=== PATIENT | male | born 1975 | race Caucasian/White ===

== ENCOUNTER 2016-07-12 07:46 | Emergency (ER) | payer BC ==
[2016-07-12 07:50] VITALS: PULSE 65; O2SAT 97
[2016-07-12] MEDS ORDERED: TORAdol 30 mg Injection IM ONE (08:19)
[2016-07-12] MEDS ORDERED: TORAdol 30 mg Injection ONE (08:23)
--- NOTE | 2016-07-12 08:24 | ERPHSYRPT ---
- History of Present Illness Time Seen by Provider: 07/12/16 07:48 Source: patient Patient Subjective Stated Complaint: chronic back pain Triage Nursing Assessment: pt states he has chronic back pain and this lower back pain started 2 weeks ago. no injury. c/o lower back pain radiating to lt leg down to knee. past hx of lumbar stenosis. no bruising or swelling. Physician History: CC: back pain Hx: 40 y/o patient of [facility] with hx of back pain, spinal stenosis. He has increased back pain. is supposed to be referred to a pain specialist-it is in the works. No fever, chills, abd pain, urinary complaints. No hx of CA. No new injury. Pain worse. He has DM. No hx of kidney disease. Drove self here. Back Pain Location: lumbar spine Allergies/Adverse Reactions: No Known Drug Allergies Allergy (Unverified 07/12/16 07:51) Home Medications: Metformin HCl 1000 mg [Glucophage 1000 MG] 1,000 mg PO BID 10/11/14 [History] Glipizide 5 mg [Glucotrol 5 MG] 5 mg PO BID 07/12/16 [History] Hx Tetanus, Diphtheria Vaccination/Date Given: Yes Hx Influenza Vaccination/Date Given: No Hx Pneumococcal Vaccination/Date Given: No Immunizations Up to Date: Yes - Review of Systems Constitutional: No Fever, No Chills Respiratory: No Cough, No Dyspnea Abdominal/Gastrointestinal: No Abdominal Pain Genitourinary Symptoms: No Dysuria, No Incontinence, No Flank Pain Musculoskeletal: Back Pain, No Fall, No Injury Neurological: No Focal Weakness, No Headache, No Parasthesia - Past Medical History Pertinent Past Medical History: Yes Neurological History: No Pertinent History ENT History: No Pertinent History Cardiac History: No Pertinent History Respiratory History: No Pertinent History Endocrine Medical History: Diabetes Type II Musculoskeletal History: No Pertinent History GI Medical History: No Pertinent History History: No Pertinent History Psycho-Social History: No Pertinent History Male Reproductive Disorders: No Pertinent History Other Medical History: chronic back pain - Past Surgical History Past Surgical History: Yes Neuro Surgical History: No Pertinent History Cardiac: No Pertinent History Respiratory: No Pertinent History Gastrointestinal: Cholecystectomy Genitourinary: No Pertinent History Musculoskeletal: No Pertinent History Male Surgical History: No Pertinent History Other Surgical History: tonsil. rt knee scope - Social History Smoking Status: Current every day smoker How long have you smoked: 20 Exposure to second hand smoke: Yes Drug Use: none Patient Lives Alone: No - Nursing Vital Signs Temperature: 97.8 F Temperature Source: Oral Pulse Rate: 65 Respiratory Rate: 18 Pain Intensity: 10 - Physical Exam General Appearance: alert, obese Eye Exam: PERRL/EOMI Ears, Nose, Throat Exam: moist mucous membranes Neck Exam: normal inspection, supple Respiratory Exam: normal breath sounds Cardiovascular Exam: regular rate/rhythm Gastrointestinal Exam: soft, No tenderness, No distention Back Exam: normal inspection, muscle spasm, point tenderness (all over back) Extremity Exam: normal inspection, normal range of motion Neurologic Exam: alert, oriented x 3, 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 Advised he pursue pain specialist as planned. He drove himself. Will try norflex at home. INSEPCT reviewed. He wants shot of toradol here- discussed risks of kidney injury with NSAIDS. Will Rx motrin and norflex. Counseled pt/family regarding: diagnosis, need for follow-up - Departure Time of Disposition: 08:23 Departure Disposition: Home Clinical Impression: Chronic low back pain Qualifiers: Back pain laterality: bilateral Sciatica presence: without sciatica Qualified Code(s): M54.5 - Low back pain; G89.29 - Other chronic pain Condition: Stable Critical Care Time: No Referrals: DOCTOR,NO FAMILY [Primary Care Provider] - Instructions: Low Back Pain Additional Instructions: BACK INJURY 1. May apply moist heat frequently for relief of pain. Take care not to burn the skin. Do not use heat for more than 30 minutes at a time. 2. Try to sleep on a firm bed, flat on your back. 3. If no improvement is noticed in 2-3 days, follow up with your family physician. 4. If you notice any numbness, tingling, weakness, or problems with your bowel or bladder, you should call your family physician or return to the emergency department. Rx motrin=ibuprofen. Rx norflex. Follow up at [facility] this week. No driving today or while taking norflex. Prescriptions: Ibuprofen 600 mg PO Q6H PRN PRN #15 tablet PRN Reason: Pain Orphenadrine Citrate 100 mg [Norflex 100 MG Tablet] 1 tab PO BID #10 tab
[2016-07-12 08:50] VITALS: BP 133/77
== END 2016-07-12 08:50 | disposition home or self-care (01) ==
LOC: ED 07:46
DX: M54.5 Low back pain (principal); G89.29 Other chronic pain
CPT/HCPCS: 96372; 99284; J1885

== ENCOUNTER 2018-12-04 18:27 | Emergency (ER) | payer BC ==
[2018-12-04] MEDS ORDERED: Hydromorphone 1 mg/ml Ampule IV ONE (19:42)
[2018-12-04] MEDS ORDERED: BENADRYL 50 MG/ML IV ONE (19:42)
[2018-12-04] MEDS ORDERED: Sodium Chloride 0.9% 1000 ML 1,000 ML IV STA (19:42)
--- NOTE | 2018-12-04 20:00 | ERPHSYRPT ---
- History of Present Illness Time Seen by Provider: 12/04/18 19:00 Source: patient Exam Limitations: no limitations Patient Subjective Stated Complaint: pt states that pain started a couple days ago, pt discribed pain as a addi horse and crushing to the top of the right foot Triage Nursing Assessment: pt ambulated into the er, pt had limp when ambulating , pt pedal pulses are possitive, no discoloration to the foot, no visible open areas, vitals wnl Physician History: Right foot pain on the dorsum and lateral aspect over the past two days as well as pain to the lateral ankle. No specific mechanism of injury he can recall. 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 Method of Injury: other (no mechanism of injury) Occurred: days ago (2) Quality: constant, cramping, throbbing Severity of Pain-Max: severe Severity of Pain-Current: severe Lower Extremities Pain: foot: right (dorsum and lateral side), ankle: right ( lateral) Modifying Factors: Improves With: nothing Associated Symptoms: No unable to bear weight, No dizzy, No fainted, No seizure , No snapping sensation, No popping sensation Allergies/Adverse Reactions: No Known Drug Allergies Allergy (Unverified 12/04/18 18:45) Home Medications: Metformin HCl 1000 mg [Glucophage 1000 MG] 1,000 mg PO BID 10/11/14 [History] Glipizide 5 mg [Glucotrol 5 MG] 5 mg PO BID 07/12/16 [History] Empagliflozin [Jardiance] 25 mg PO DAILY 12/04/18 [History] Hx Tetanus, Diphtheria Vaccination/Date Given: No Hx Influenza Vaccination/Date Given: No Hx Pneumococcal Vaccination/Date Given: No - Review of Systems Constitutional: No Fever, No Chills, No Fatigue, No Lethargy Eyes: No Eye Pain Ears, Nose, & Throat: No Mouth Pain, No Painful Swallowing Respiratory: No Cough, No Dyspnea Cardiac: No Chest Pain, No Edema, No Palpitations Abdominal/Gastrointestinal: No Abdominal Pain, No Nausea, No Vomiting Genitourinary Symptoms: No Hematuria, No Flank Pain Musculoskeletal: No Back Pain, No Neck Pain Skin: No Pruritis, No Rash Neurological: No Dizziness, No Focal Weakness, No Parasthesia, No Tics, No Tremors Psychological: No Anxiety Hematologic/Lymphatic: No Easy Bleeding, No Easy Bruising All Other Systems: Reviewed and Negative - Past Medical History Pertinent Past Medical History: Yes Neurological History: No Pertinent History ENT History: No Pertinent History Cardiac History: No Pertinent History Respiratory History: No Pertinent History Endocrine Medical History: Diabetes Type II Musculoskeletal History: No Pertinent History GI Medical History: No Pertinent History History: No Pertinent History Psycho-Social History: No Pertinent History Male Reproductive Disorders: No Pertinent History Other Medical History: chronic back pain - Past Surgical History Past Surgical History: Yes Neuro Surgical History: No Pertinent History Cardiac: No Pertinent History Respiratory: No Pertinent History Gastrointestinal: Cholecystectomy Genitourinary: No Pertinent History Musculoskeletal: No Pertinent History Male Surgical History: No Pertinent History Other Surgical History: tonsil. rt knee scope - Social History Smoking Status: Current every day smoker How long have you smoked: 20 Exposure to second hand smoke: Yes Drug Use: none Patient Lives Alone: No - Nursing Vital Signs Nursing Vital Signs: Initial Vital Signs Temperature 98.9 F 12/04/18 18:37 Pulse Rate 65 12/04/18 18:37 Blood Pressure 127/80 12/04/18 18:37 O2 Sat by Pulse Oximetry 94 L 12/04/18 18:37 Pain Scale Pain Intensity [Right Foot] 10 Pain Intensity 10 - Physical Exam General Appearance: no apparent distress Eyes, Ears, Nose, Throat Exam: moist mucous membranes Neck Exam: normal inspection, non-tender, supple, full range of motion Cardiovascular/Respiratory Exam: chest non-tender, normal breath sounds, regular rate/rhythm, heart sounds normal, no respiratory distress Back Exam: normal inspection, normal range of motion, No CVA tenderness, No vertebral tenderness Hips Exam: bilateral: non-tender, normal inspection, normal range of motion, no evidence of injury Legs Exam: bilateral leg: non-tender, normal inspection, normal range of motion , no evidence of injury Knees Exam: bilateral knee: non-tender, normal inspection, normal range of motion, no evidence of injury, bone tenderness Ankle Exam: right ankle: bone tenderness (lateral posterior malleolus), bilateral ankle: normal inspection, normal range of motion, no evidence of injury Foot Exam: right foot: bone tenderness, left foot: non-tender, normal inspection , normal range of motion, no evidence of injury DTR - Lower Extremities Exam: ankle (R): 2+, ankle (L): 2+ Neuro/Tendon Exam: normal sensation, normal motor functions, normal tendon functions, responds to pain, no evidence tendon injury Mental Status Exam: alert, oriented x 3, cooperative Skin Exam: normal color, warm, dry, No rash, No jaundice, No cyanosis SpO2 Interpretation: normal SpO2: 94 O2 Delivery: Room Air - Radiology Exams Right Ankle X-ray Interpretation: Interpreted by me, Reviewed by me, Negative, No Fracture, Nml Alignment, Nml Soft Tissues Foot X-ray Interpretation: Interpreted by me, Reviewed by me, Negative, No Fracture, Nml Alignment, Nml Soft Tissues Ordered Tests: Active Orders 24 hr Category Date Time Status IV Insertion STAT Care 12/04/18 19:42 Active ANKLE (3 VIEWS) Stat Exams 12/04/18 19:41 Taken FOOT (MINIMUM 3 VIEWS) Stat Exams 12/04/18 19:41 Taken CBC W DIFF Stat Lab 12/04/18 20:25 Completed CK-Creatinine Phosphokinase Stat Lab 12/04/18 20:25 Completed CMP Stat Lab 12/04/18 20:25 Completed Lactic Acid Stat Lab 12/04/18 20:25 Completed SED RATE [Erythrocyte Sedimentation Rate] Stat Lab 12/04/18 20:25 Completed Medication Summary Discontinued Medications Generic Name Dose Route Start Last Admin Trade Name Freq PRN Reason Stop Dose Admin Diphenhydramine HCl 25 mg 12/04/18 19:42 12/04/18 20:29 Benadryl 50 Mg/Ml IV 12/04/18 19:43 25 mg STAT ONE Administration Diphenhydramine HCl Confirm 12/04/18 20:27 Benadryl 50 Mg/Ml Administered 12/04/18 20:28 Dose 50 mg .ROUTE .STK-MED ONE Hydromorphone HCl 1 mg 12/04/18 19:42 12/04/18 20:30 Hydromorphone 1 Mg/Ml Ampule IV 12/04/18 19:43 1 mg STAT ONE Administration Hydromorphone HCl Confirm 12/04/18 20:27 Hydromorphone 1 Mg/Ml Ampule Administered 12/04/18 20:28 Dose 1 mg .ROUTE .STK-MED ONE Sodium Chloride 1,000 mls @ 999 mls/hr 12/04/18 19:42 12/04/18 20:30 Sodium Chloride 0.9% 1000 Ml IV 12/04/18 20:42 999 mls/hr .Q1H1M STA Administration Sodium Chloride Confirm 12/04/18 20:27 Sodium Chloride 0.9% 1000 Ml Administered 12/04/18 20:28 Dose 1,000 mls @ ud .ROUTE .STK-MED ONE Lab/Rad Data: Laboratory Result Diagrams 12/04/18 20:25 12/04/18 20:25 Laboratory Results 12/04/18 12/04/18 12/04/18 Range/Units 20:25 20:25 20:25 WBC 6.9 (4.0-10.5) K/mm3 RBC 5.11 (4.1-5.6) M/mm3 Hgb 15.8 (12.5-18.0) gm/dl Hct 47.3 (42-50) % MCV 92.6 (78-100) fl MCH 30.9 (26-32) pg MCHC 33.4 (32-36) g/dl RDW 14.3 H (11.5-14.0) % Plt Count 150 (150-450) K/mm3 MPV 9.8 H (6-9.5) fl Gran % 33.9 L (36.0-66.0) % Eos # (Auto) 0.35 (0-0.5) Absolute Lymphs (auto) 3.49 (1.0-4.6) Absolute Monos (auto) 0.67 (0.0-1.3) Lymphocytes % 50.9 H (24.0-44.0) % Monocytes % 9.8 (0.0-12.0) % Eosinophils % 5.1 H (0.00-5.0) % Basophils % 0.3 (0.0-0.4) % Absolute Granulocytes 2.33 (1.4-6.9) Basophils # 0.02 (0-0.4) ESR 6 (0-15) mm/hr Sodium 144 (137-145) mmol/L Potassium 4.1 (3.5-5.1) mmol/L Chloride 105 (98-107) mmol/L Carbon Dioxide 30 (22-30) mmol/L Anion Gap 13.6 (5-15) MEQ/L BUN 16 (9-20) mg/dL Creatinine 1.01 (0.66-1.25) mg/dL Estimated GFR > 60.0 ML/MIN Glucose 199 H (74-106) mg/dL Lactic Acid 1.2 (0.4-2.0) Calcium 9.1 (8.4-10.2) mg/dL Total Bilirubin 0.50 (0.2-1.3) mg/dL AST 44 (17-59) U/L ALT 40 (0-50) U/L Alkaline Phosphatase 62 (38-126) U/L Creatine Kinase 277 H (55-170) U/L Serum Total Protein 7.5 (6.3-8.2) g/dL Albumin 4.1 (3.5-5.0) g/dL - Progress Progress: improved Progress Note: 12/04/18 21:01 patient's pain has improved. No breakdown of the skin to either foot noted. Counseled pt/family regarding: lab results, diagnosis, need for follow-up, rad results - Departure Departure Disposition: Home Clinical Impression: Right foot pain, Pain in lateral portion of right ankle Condition: Good Critical Care Time: No Referrals: DOCTOR,NO FAMILY [Primary Care Provider] - JUSTIN SILVERMAN [PODIATRY STAFF] - 12/07/18 (Foot and Ankle specialist for your reference) Instructions: Diabetic Neuropathy (DC), Metatarsalgia (DC), Foot Sprain (DC) Additional Instructions: Return to the emergency department if you have change in skill color, texture, breakdown or worsening pain for immediate re-evaluation in the emergency department. Prescriptions: Etodolac 400 mg [Lodine 400 mg] 400 mg PO BID PRN PRN #20 tablet PRN Reason: Pain
[2018-12-04] MEDS ORDERED: Sodium Chloride 0.9% 1000 ML 1,000 ML ONE (20:27)
[2018-12-04] MEDS ORDERED: Hydromorphone 1 mg/ml Ampule ONE (20:27)
[2018-12-04] MEDS ORDERED: BENADRYL 50 MG/ML ONE (20:27)
[2018-12-04 20:30] LABS: Absolute Neutrophil Ct (ANC) 2.33 (1.4-6.9); BASOPHIL % 0.3 % (0.0-0.4); Basophil (Absolute #) 0.02 (0-0.4); Eosinophil % 5.1 % (0.00-5.0); Eosinophil (Absolute #) 0.35 (0-0.5); Hematocrit 47.3 % (42-50); Hemoglobin 15.8 gm/dl (12.5-18.0); Lymphocyte (Absolute #) 3.49 (1.0-4.6); Lymphocytes % 50.9 % (24.0-44.0); Mean Cell Volume 92.6 fl (78-100); Mean Corpuscular Hemoglobin 30.9 pg (26-32); Mean Corpuscular Hgb Concent. 33.4 g/dl (32-36); Mean Platelet Volume 9.8 fl (6-9.5); Monocyte (Absolute #) 0.67 (0.0-1.3); Monocytes % 9.8 % (0.0-12.0); Neutrophil % 33.9 % (36.0-66.0); Platelet Count 150 K/mm3 (150-450); Red Blood Count 5.11 M/mm3 (4.1-5.6); Red Cell Distribution Width 14.3 % (11.5-14.0); White Blood Count 6.9 K/mm3 (4.0-10.5)
[2018-12-04 20:41] LABS: ALBUMIN 4.1 g/dL (3.5-5.0); ALKALINE PHOSPHATASE 62 U/L (38-126); ANION GAP 13.6 MEQ/L (5-15); BLOOD UREA NITROGEN 16 mg/dL (9-20); CHLORIDE 105 mmol/L (98-107); CK-Creatinine Phosphokinase 277 U/L (55-170); Calcium 9.1 mg/dL (8.4-10.2); Carbon Dioxide 30 mmol/L (22-30); Creatinine 1 1.01 mg/dL (0.66-1.25); Glucose 199 mg/dL (74-106); Potassium 4.1 mmol/L (3.5-5.1); SGOT/AST 44 U/L (17-59); SGPT/ALT 40 U/L (0-50); SODIUM 144 mmol/L (137-145); Total Protein 7.5 g/dL (6.3-8.2)
[2018-12-04 20:49] LABS: Erythrocyte Sedimentation Rate 6 mm/hr (0-15)
[2018-12-04 21:36] VITALS: BP 119/70; PULSE 54; O2SAT 96
--- NOTE | 2018-12-04 23:56 | XRAY ---
Indication: Pain. No known injury. Comparison: None 3 views of the right ankle demonstrates mild soft tissue swelling. No other bony, articular, or soft tissue abnormalities.
--- NOTE | 2018-12-04 23:58 | XRAY ---
Indication: Pain. No known injury. Comparison: None 3 nonweightbearing views of the right foot demonstrates prominent navicular bone. No bony, articular, or soft tissue abnormalities.
== END 2018-12-04 21:42 | disposition home or self-care (01) ==
LOC: ED 18:27
DX: M79.671 Pain in right foot (principal); M25.571 Pain in right ankle and joints of right foot; Z79.899 Other long term (current) drug therapy; E11.9 Type 2 diabetes mellitus without complications
CPT/HCPCS: 36000; 36415; 73610; 73630; 80053; 82550; 83605; 85025; 85652; 96360; 96374; 96375; 99284; J1170; J1200

== ENCOUNTER 2020-08-14 03:14 | Emergency (ER) | payer BC ==
[2020-08-14] MEDS ORDERED: PROTONIX 40 MG IV IV ONE ×2 (03:36→03:48)
[2020-08-14] MEDS ORDERED: Sodium Chloride 0.9% 1000 ML 1,000 ML IV STA (03:36)
[2020-08-14] MEDS ORDERED: Zofran 4 MG/2 ML VIAL IV ONE (03:36)
[2020-08-14] MEDS ORDERED: Hydromorphone 1 mg/ml Injection IV ONE (03:36)
[2020-08-14] MEDS ORDERED: Hydromorphone 1 mg/ml Injection ONE (03:48)
[2020-08-14] MEDS ORDERED: Zofran 4 MG/2 ML VIAL ONE (03:48)
[2020-08-14] MEDS ORDERED: Sodium Chloride 0.9% 1000 ML 1,000 ML ONE (03:49)
[2020-08-14 04:08] LABS: Absolute Neutrophil Ct (ANC) 8.41 (1.4-6.9); BASOPHIL % 0.3 % (0.0-0.4); Basophil (Absolute #) 0.04 (0-0.4); Eosinophil % 1.9 % (0.00-5.0); Eosinophil (Absolute #) 0.25 (0-0.5); Hematocrit 57.3 % (42-50); Hemoglobin 19.1 gm/dl (12.5-18.0); Lymphocyte (Absolute #) 3.58 (1.0-4.6); Lymphocytes % 27.2 % (24.0-44.0); Mean Cell Volume 89.5 fl (78-100); Mean Corpuscular Hemoglobin 29.8 pg (26-32); Mean Corpuscular Hgb Concent. 33.3 g/dl (32-36); Monocytes % 6.8 % (0.0-12.0); Neutrophil % 63.8 % (36.0-66.0); Platelet Count 205 K/mm3 (150-450); Red Cell Distribution Width 14.9 % (11.5-14.0); White Blood Count 13.2 K/mm3 (4.0-10.5)
[2020-08-14 04:12] LABS: Appearance CLEAR (CLEAR); Bilirubin NEGATIVE (NEGATIVE); Blood NEGATIVE Ery/ul (0-5); Glucose >=500 mg/dL (NEGATIVE); Ketones NEGATIVE (NEGATIVE); Leukocyte Esterase NEGATIVE (NEGATIVE); Nitrite NEGATIVE (NEGATIVE); Protein,Urine Dip NEGATIVE (Negative); Specific Gravity 1.037 (1.005-1.025); Urobilinogen NEGATIVE mg/dL (0-1)
[2020-08-14 04:16] LABS: INR 1.05 (0.8-3.0); PROTIME 12.4 SECONDS (9.4-12.5)
[2020-08-14 04:17] LABS: ALBUMIN 4.6 g/dL (3.5-5.0); ALKALINE PHOSPHATASE 101 U/L (38-126); AMYLASE 66 U/L (30-110); ANION GAP 13.8 MEQ/L (5-15); BLOOD UREA NITROGEN 16 mg/dL (9-20); CHLORIDE 101 mmol/L (98-107); Calcium 9.7 mg/dL (8.4-10.2); Carbon Dioxide 28 mmol/L (22-30); Creatinine 1 0.96 mg/dL (0.66-1.25); EST GLOMERULAR FILTRATION RATE > 60.0 ML/MIN; Glucose 220 mg/dL (74-106); LIPASE 31 U/L (23-300); Potassium 4.4 mmol/L (3.5-5.1); SGOT/AST 30 U/L (17-59); SGPT/ALT 30 U/L (0-50); SODIUM 138 mmol/L (137-145)
--- NOTE | 2020-08-14 05:12 | ERPHSYRPT ---
- History of Present Illness Time Seen by Provider: 08/14/20 03:40 Historian: patient Exam Limitations: no limitations Patient Subjective Stated Complaint: Patient states " I started having really bad stomach cramping around 7 this evening." Triage Nursing Assessment: Patient arrived to ED and ambulated back without difficulty. Patient able to urinate and urine dark yellow in color with no odor yet appears concentrated. Lungs clear bilateral A/P throughout. Patient denies SOB or chest pain. Cap refill < 3 seconds. No S/S of respiratory distress noted. + BS times 4 quads. ABD soft, round, obese, and is tender upon p[alpitation of upper, lower and right side of ABD. Patient states he does have HX of kidney stones. Patient denies any pain or burning upon urination. No dependent edema noted. + Radial and pedal pulses noted bilateral. Patient states he has had N/V. Patient states he is puking undigested food/bile and has vomited at least 5-6 times since 0 yesterday. Patient denies loose stools. Patient states last BM was 08/13/20 and was WNL for him nothing out of ordinary. Patient denies any dizziness. Bilateral hand shaker flatwork strong and equal. Pupils brisk and equal. Patient denies radiating pain into back or flank. Physician History: Patient is a 45-year-old male who presents with epigastric pain which started at 7 PM yesterday evening. He has had nausea and vomiting 5-6 times no diarrhea his last bowel movement was yesterday no fever chills sweats no radiation. Timing/Duration: yesterday Activities at Onset: none Quality: burning, stabbing Abdominal Pain Onset Location: epigastric Pain Radiation: no radiation Severity of Pain-Max: severe Severity of Pain-Current: severe Modifying Factors: Improves With: nothing Associated Symptoms: nausea, vomiting Previous symptoms: no prior history Allergies/Adverse Reactions: No Known Drug Allergies Allergy (Unverified 08/14/20 03:40) Home Medications: Metformin HCl 1000 mg [Glucophage 1000 MG] 1,000 mg PO BID 10/11/14 [History] Glipizide 5 mg [Glucotrol 5 MG] 5 mg PO BID 07/12/16 [History] Empagliflozin [Jardiance] 25 mg PO DAILY 12/04/18 [History] Lisinopril 5 mg [Zestril 5 MG] 5 mg PO DAILY 02/04/20 [History] Semaglutide [Ozempic] 50 mg SQ WEEKLY 02/04/20 [History] Cholecalciferol (Vitamin D3) [Vitamin D] 5,000 units PO BID 08/14/20 [History] Hx Tetanus, Diphtheria Vaccination/Date Given: No Hx Influenza Vaccination/Date Given: Yes Hx Pneumococcal Vaccination/Date Given: No Immunizations Up to Date: Yes Travel Risk - International Travel Have you traveled outside of the country in past 3 weeks: No - Coronavirus Screening Are you exhibiting any of the following symptoms?: No Close contact with a COVID-19 positive Pt in past 14-21 Days: No - Vaccine Status Have you recieved a Covid-19 vaccination: No - Review of Systems Constitutional: No Fever, No Chills Eyes: No Symptoms Ears, Nose, & Throat: No Symptoms Respiratory: No Cough, No Dyspnea Cardiac: No Chest Pain, No Edema, No Syncope Abdominal/Gastrointestinal: Abdominal Pain, Nausea, Vomiting, No Diarrhea Genitourinary Symptoms: No Dysuria Musculoskeletal: No Back Pain, No Neck Pain Skin: No Rash Neurological: No Dizziness, No Focal Weakness, No Sensory Changes Psychological: No Symptoms Endocrine: No Symptoms All Other Systems: Reviewed and Negative - Past Medical History Pertinent Past Medical History: Yes Neurological History: No Pertinent History ENT History: No Pertinent History Cardiac History: No Pertinent History Respiratory History: No Pertinent History Endocrine Medical History: Diabetes Type II Musculoskeletal History: No Pertinent History GI Medical History: No Pertinent History History: No Pertinent History Psycho-Social History: No Pertinent History Male Reproductive Disorders: No Pertinent History Other Medical History: Chronic Back Pain - Past Surgical History Past Surgical History: Yes Neuro Surgical History: No Pertinent History Cardiac: No Pertinent History Respiratory: No Pertinent History Gastrointestinal: Cholecystectomy Genitourinary: No Pertinent History Musculoskeletal: No Pertinent History Male Surgical History: No Pertinent History Other Surgical History: HX RT Knee Scope - Social History Smoking Status: Current every day smoker How long have you smoked: 30 years Exposure to second hand smoke: Yes Drug Use: none Patient Lives Alone: No - Nursing Vital Signs Nursing Vital Signs: Initial Vital Signs Temperature 98.5 F 08/14/20 03:31 Pulse Rate 81 08/14/20 03:31 Respiratory Rate 22 08/14/20 03:31 Blood Pressure 129/77 08/14/20 03:31 O2 Sat by Pulse Oximetry 95 08/14/20 03:31 Pain Scale Pain Intensity 5 - Physical Exam General Appearance: no apparent distress, moderate distress, alert Eye Exam: PERRL/EOMI, eyes nml inspection Ears, Nose, Throat Exam: normal ENT inspection, pharynx normal, moist mucous membranes Neck Exam: normal inspection, non-tender, supple, full range of motion Respiratory Exam: normal breath sounds, lungs clear, No respiratory distress Cardiovascular Exam: regular rate/rhythm, normal heart sounds Gastrointestinal/Abdomen Exam: tenderness, guarding, No mass Back Exam: normal inspection, normal range of motion, No CVA tenderness, No vertebral tenderness Extremity Exam: normal inspection, normal range of motion, pelvis stable Neurologic Exam: alert, oriented x 3, cooperative, normal mood/affect, nml cerebellar function, sensation nml, No motor deficits Skin Exam: normal color, warm, dry SpO2: 97 - Course Nursing assessment & vital signs reviewed: Yes EKG Interpreted by Me: RATE (72), Sinus Rhythm, Left [place] Deviation, Non- specific ST Changes - CT Exams Abdomen/Pelvis CT Interpretation: Tele-radiologist Report Ordered Tests: Active Orders 24 hr Category Date Time Status EKG-ER Only STAT Care 08/14/20 03:36 Active IV Insertion STAT Care 08/14/20 03:36 Active ABDOMEN AND PELVIS W CONTRAST [CT] Stat Exams 08/14/20 03:36 Taken CHEST 1 VIEW (PORTABLE) Stat Exams 08/14/20 03:36 Taken AMYLASE Stat Lab 08/14/20 04:05 Completed CBC W DIFF Stat Lab 08/14/20 04:05 Completed CMP Stat Lab 08/14/20 04:05 Completed LIPASE Stat Lab 08/14/20 04:05 Completed Lactic Acid Stat Lab 08/14/20 03:36 Ordered PROTIME WITH INR Stat Lab 08/14/20 04:05 Completed TROPONIN Q3H Lab 08/14/20 04:05 Completed TROPONIN Q3H Lab 08/14/20 06:45 Ordered TROPONIN Q3H Lab 08/14/20 09:45 Ordered TROPONIN Q3H Lab 08/14/20 12:45 Ordered TROPONIN Q3H Lab 08/14/20 15:45 Ordered UA W/RFX UR CULTURE Stat Lab 08/14/20 04:05 Completed Medication Summary Generic Name Dose Route Start Last Admin Trade Name Manpreet PRN Reason Stop Dose Admin Metronidazole 500 mg in 100 mls @ 200 mls/hr 08/14/20 06:06 Flagyl 500 Mg Ivpb IV 08/14/20 06:35 STAT STA Ceftriaxone Sodium/Dextrose 1 g in 50 mls @ 100 mls/hr 08/14/20 06:07 Rocephin 1 Gm-D5w 50 Ml Bag IV 08/14/20 06:36 STAT STA Discontinued Medications Generic Name Dose Route Start Last Admin Trade Name Manpreet PRN Reason Stop Dose Admin Hydromorphone HCl 1 mg 08/14/20 03:36 08/14/20 03:57 Hydromorphone 1 Mg/Ml Injection IV 08/14/20 03:37 1 mg STAT ONE Administration Hydromorphone HCl Confirm 08/14/20 03:48 Hydromorphone 1 Mg/Ml Injection Administered 08/14/20 03:49 Dose 1 mg .ROUTE .STK-MED ONE Sodium Chloride 1,000 mls @ 999 mls/hr 08/14/20 03:36 08/14/20 03:54 Sodium Chloride 0.9% 1000 Ml IV 08/14/20 04:36 999 mls/hr .Q1H1M STA Administration Sodium Chloride Confirm 08/14/20 03:49 Sodium Chloride 0.9% 1000 Ml Administered 08/14/20 03:50 Dose 1,000 mls @ ud .ROUTE .STK-MED ONE Ondansetron HCl 4 mg 08/14/20 03:36 08/14/20 03:58 Zofran 4 Mg/2 Ml Vial IV 08/14/20 03:37 4 mg STAT ONE Administration Ondansetron HCl Confirm 08/14/20 03:48 Zofran 4 Mg/2 Ml Vial Administered 08/14/20 03:49 Dose 4 mg .ROUTE .STK-MED ONE Pantoprazole Sodium 40 mg 08/14/20 03:36 08/14/20 04:22 Protonix 40 Mg Iv IV 08/14/20 03:37 40 mg STAT ONE Administration Pantoprazole Sodium Confirm 08/14/20 03:48 Protonix 40 Mg Iv Administered 08/14/20 03:49 Dose 40 mg IV .STK-MED ONE Lab/Rad Data: Laboratory Result Diagrams 08/14/20 04:05 08/14/20 04:05 Laboratory Results 08/14/20 08/14/20 08/14/20 Range/Units 04:05 04:05 04:05 WBC (4.0-10.5) K/mm3 RBC (4.1-5.6) M/mm3 Hgb (12.5-18.0) gm/dl Hct (42-50) % MCV (78-100) fl MCH (26-32) pg MCHC (32-36) g/dl RDW (11.5-14.0) % Plt Count (150-450) K/mm3 MPV (7.5-11.0) fl Gran % (36.0-66.0) % Eos # (Auto) (0-0.5) Absolute Lymphs (auto) (1.0-4.6) Absolute Monos (auto) (0.0-1.3) Lymphocytes % (24.0-44.0) % Monocytes % (0.0-12.0) % Eosinophils % (0.00-5.0) % Basophils % (0.0-0.4) % Absolute Granulocytes (1.4-6.9) Basophils # (0-0.4) PT 12.4 (9.4-12.5) SECONDS INR 1.05 (0.8-3.0) Sodium 138 (137-145) mmol/L Potassium 4.4 (3.5-5.1) mmol/L Chloride 101 (98-107) mmol/L Carbon Dioxide 28 (22-30) mmol/L Anion Gap 13.8 (5-15) MEQ/L BUN 16 (9-20) mg/dL Creatinine 0.96 (0.66-1.25) mg/dL Estimated GFR > 60.0 ML/MIN Glucose 220 H (74-106) mg/dL Calcium 9.7 (8.4-10.2) mg/dL Total Bilirubin 0.70 (0.2-1.3) mg/dL AST 30 (17-59) U/L ALT 30 (0-50) U/L Alkaline Phosphatase 101 (38-126) U/L Troponin I 0.015 (0.000-0.034) ng/mL Serum Total Protein 8.0 (6.3-8.2) g/dL Albumin 4.6 (3.5-5.0) g/dL Amylase 66 (30-110) U/L Lipase 31 (23-300) U/L Urine Color (YELLOW) Urine Appearance (CLEAR) Urine pH (5-6) Ur Specific [place] (1.005-1.025) Urine Protein (Negative) Urine Ketones (NEGATIVE) Urine Blood (0-5) Daniel/ul Urine Nitrite (NEGATIVE) Urine Bilirubin (NEGATIVE) Urine Urobilinogen (0-1) mg/dL Ur Leukocyte Esterase (NEGATIVE) Urine WBC (Auto) (0-5) /HPF Urine RBC (Auto) (0-2) /HPF U Epithel Cells (Auto) (FEW) /HPF Urine Bacteria (Auto) (NEGATIVE) /HPF Urine Culture Reflexed (NO) Urine Glucose (NEGATIVE) mg/dL 08/14/20 08/14/20 Range/Units 04:05 04:05 WBC 13.2 H (4.0-10.5) K/mm3 RBC 6.40 H* (4.1-5.6) M/mm3 Hgb 19.1 H (12.5-18.0) gm/dl Hct 57.3 H (42-50) % MCV 89.5 (78-100) fl MCH 29.8 (26-32) pg MCHC 33.3 (32-36) g/dl RDW 14.9 H (11.5-14.0) % Plt Count 205 (150-450) K/mm3 MPV 10.0 (7.5-11.0) fl Gran % 63.8 (36.0-66.0) % Eos # (Auto) 0.25 (0-0.5) Absolute Lymphs (auto) 3.58 (1.0-4.6) Absolute Monos (auto) 0.90 (0.0-1.3) Lymphocytes % 27.2 (24.0-44.0) % Monocytes % 6.8 (0.0-12.0) % Eosinophils % 1.9 (0.00-5.0) % Basophils % 0.3 (0.0-0.4) % Absolute Granulocytes 8.41 H (1.4-6.9) Basophils # 0.04 (0-0.4) PT (9.4-12.5) SECONDS INR (0.8-3.0) Sodium (137-145) mmol/L Potassium (3.5-5.1) mmol/L Chloride (98-107) mmol/L Carbon Dioxide (22-30) mmol/L Anion Gap (5-15) MEQ/L BUN (9-20) mg/dL Creatinine (0.66-1.25) mg/dL Estimated GFR ML/MIN Glucose (74-106) mg/dL Calcium (8.4-10.2) mg/dL Total Bilirubin (0.2-1.3) mg/dL AST (17-59) U/L ALT (0-50) U/L Alkaline Phosphatase (38-126) U/L Troponin I (0.000-0.034) ng/mL Serum Total Protein (6.3-8.2) g/dL Albumin (3.5-5.0) g/dL Amylase (30-110) U/L Lipase (23-300) U/L Urine Color YELLOW (YELLOW) Urine Appearance CLEAR (CLEAR) Urine pH 6.0 (5-6) Ur Specific [place] 1.037 (1.005-1.025) Urine Protein NEGATIVE (Negative) Urine Ketones NEGATIVE (NEGATIVE) Urine Blood NEGATIVE (0-5) Daniel/ul Urine Nitrite NEGATIVE (NEGATIVE) Urine Bilirubin NEGATIVE (NEGATIVE) Urine Urobilinogen NEGATIVE (0-1) mg/dL Ur Leukocyte Esterase NEGATIVE (NEGATIVE) Urine WBC (Auto) NONE (0-5) /HPF Urine RBC (Auto) NONE (0-2) /HPF U Epithel Cells (Auto) NONE (FEW) /HPF Urine Bacteria (Auto) NONE (NEGATIVE) /HPF Urine Culture Reflexed NO (NO) Urine Glucose >=500 (NEGATIVE) mg/dL - Progress Progress: improved - Departure Departure Disposition: Home Clinical Impression: Colitis Condition: Stable Critical Care Time: No Referrals: DOCTOR,NO FAMILY [Primary Care Provider] - Instructions: Colitis, Acute Abdomen (Belly Pain), Adult (DC) Prescriptions: Amoxicillin/Potassium Clav [Augmentin 875-125 Tablet] 1 each PO BID 7 Days #14 tablet Metronidazole 500 mg [Flagyl 500 MG] 500 mg PO TID #21 tablet Hydrocodone/Acetaminophen [Hydrocodone-Acetamin 7.5-325] 1 each PO Q6H 3 Days #12 tablet MDD 4
[2020-08-14] MEDS ORDERED: FLAGYL 500 MG IVPB 500 MG/100 ML BAG IV STA (06:06)
[2020-08-14] MEDS ORDERED: ROCEPHIN 1 Gm-D5w 50 ml Bag** 1 G/50 ML IVPB IV STA (06:07)
[2020-08-14] MEDS ORDERED: ROCEPHIN 1 Gm-D5w 50 ml Bag** 1 G/50 ML IVPB IV ONE (06:20)
[2020-08-14] MEDS ORDERED: FLAGYL 500 MG IVPB 500 MG/100 ML BAG IV ONE (06:20)
[2020-08-14 06:49] VITALS: BP 119/71
[2020-08-14 07:06] VITALS: PULSE 76; O2SAT 100
--- NOTE | 2020-08-14 09:26 | XRAY ---
Indication: Epigastric/abdomen pain. Multiple contiguous axial images obtained through the abdomen and pelvis using 80 cc Isovue 370 contrast. Comparison: None Lung bases demonstrates tiny right costophrenic angle calcified granuloma. No infiltrate or effusion. Heart not enlarged. Noncontrasted stomach and bowel loops appear nonobstructed. Small bowel loops in the left abdomen demonstrates moderate circumferential wall thickening with stranding favoring enteritis. Tiny perihepatic and pelvic free fluid may be reactive. No walled off fluid collection or free air. Normal appendix. Incidental splenic calcified granulomas and cholecystectomy clips. Remaining liver, pancreas, spleen, adrenal glands, kidneys, ureters, and bladder are unremarkable. Minimal aortoiliac calcifications. No AAA or pathologic retroperitoneal lymphadenopathy. Osseous structures intact with mild/moderate degenerative changes throughout the thoracolumbar spine. Impression: 1. Abnormal small bowel wall thickening with stranding favoring enteritis. Tiny perihepatic and pelvic free fluid presumed reactive. 2. Incidental chronic bony findings and old granulomatous disease. Comment: Preliminary interpretation was made by [facility] who does not report enteritis and free fluid. Instead sigmoid colitis is reported which I do not appreciate.
--- NOTE | 2020-08-14 09:28 | XRAY ---
Indication: Abdomen pain. Comparison: None Portable chest demonstrates normal heart and lungs with incidental right costophrenic angle calcified granuloma. Bony thorax intact.
== END 2020-08-14 07:14 | disposition home or self-care (01) ==
LOC: ED 03:14
DX: K52.9 Noninfective gastroenteritis and colitis, unspecified (principal)
CPT/HCPCS: 36000; 36415; 71045; 74177; 80053; 81001; 82150; 83605; 83690; 84484; 85025; 85610; 93005; 96365; 96368; 96374; 96375; 99284; J0696; J1170; J2405

== ENCOUNTER 2021-03-12 13:05 | Emergency (ER) | payer BC ==
[2021-03-12 13:30] VITALS: O2SAT 95
[2021-03-12] MEDS ORDERED: TORAdol 30 mg Injection IM ONE (13:43)
[2021-03-12] MEDS ORDERED: TYLENOL EXTRA STRENGTH 500 MG PO STA (13:43)
[2021-03-12] MEDS ORDERED: TORAdol 30 mg Injection ONE (13:45)
[2021-03-12] MEDS ORDERED: TYLENOL EXTRA STRENGTH 500 MG ONE (13:45)
--- NOTE | 2021-03-12 14:08 | XRAY ---
Indication: Pneumonia. Comparison: August 14, 2020. Portable apical lordotic chest remains clear. Heart not enlarged. Bony thorax intact. No new/acute abnormalities.
[2021-03-12] MEDS ORDERED: Sodium Chloride 0.9% 1000 ML 1,000 ML IV STA (14:21)
--- NOTE | 2021-03-12 14:23 | ERPHSYRPT ---
- History of Present Illness Time Seen by Provider: 03/12/21 13:25 Source: patient Exam Limitations: no limitations Patient Subjective Stated Complaint: "I've been coughing." Triage Nursing Assessment: Patient reported a one day progressive cough without chest pain/shortness of breath. Denied any recent sick contacts. Denied alleviation with home treatment. Reported having a fever at home and taking 500mg tylenol arthritis around 0700 03/12/20. Skin hot/clammy. Symmetrical chest expansion. Heart tones S1/S2 irregular/tachycardic. Lungs vesicular with adequate airflow. Peripheral pulses +2 bilateral. Physician History: Patient is a 45-year-old male presents to emergency department with complaints of fever and a cough. Symptoms have been ongoing for 1 day. No associated chest pain or shortness of breath. Patient take Tylenol at home at approximately 7 AM this morning. Patient took 500 mg of Tylenol. No nausea or vomiting. No diaphoresis. No rash. No headache. No dizziness. Symptoms are mild to moderate in intensity. No specific worsening improving factors. Patient voices no other complaints or concerns at this time. Patient is a known diabetic. He states he has not been compliant with his diabetic regimen. Patient states that he has not had a time to chart picker his diabetic medications. He states that his sugars have been running high lately. Timing/Duration: yesterday Severity: moderate Associated Symptoms: No nausea, No vomiting, No abdominal pain, No shortness of breath, No headaches, No syncope, No seizure Allergies/Adverse Reactions: No Known Drug Allergies Allergy (Unverified 03/12/21 13:16) Home Medications: Metformin HCl 1000 mg [Glucophage 1000 MG] 1,000 mg PO BID 10/11/14 [History] Glipizide 5 mg [Glucotrol 5 MG] 5 mg PO BID 07/12/16 [History] Empagliflozin [Jardiance] 25 mg PO DAILY 12/04/18 [History] Semaglutide [Ozempic] 50 mg SQ WEEKLY 02/04/20 [History] Cholecalciferol (Vitamin D3) [Vitamin D] 5,000 units PO BID 08/14/20 [History] Hx Tetanus, Diphtheria Vaccination/Date Given: No Hx Influenza Vaccination/Date Given: Yes Hx Pneumococcal Vaccination/Date Given: No Travel Risk - International Travel Have you traveled outside of the country in past 3 weeks: No - Coronavirus Screening Are you exhibiting any of the following symptoms?: Yes Symptoms: Cough: New Onset Close contact with a COVID-19 positive Pt in past 14-21 Days: No - Vaccine Status Have you recieved a Covid-19 vaccination: Yes 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[employer] - Vaccination Dates Date of 2cond Vaccination (if applicable): 11/10/20 - Review of Systems Constitutional: No Symptoms, No Fever, No Chills Eyes: No Symptoms Ears, Nose, & Throat: No Symptoms Respiratory: No Symptoms, No Cough, No Dyspnea Cardiac: No Symptoms, No Chest Pain, No Edema, No Syncope Abdominal/Gastrointestinal: No Symptoms, No Abdominal Pain, No Nausea, No Vomiting, No Diarrhea Genitourinary Symptoms: No Symptoms, No Dysuria Musculoskeletal: No Symptoms, No Back Pain, No Neck Pain Skin: No Symptoms, No Rash Neurological: No Symptoms, No Dizziness, No Focal Weakness, No Sensory Changes Psychological: No Symptoms Endocrine: No Symptoms Hematologic/Lymphatic: No Symptoms Immunological/Allergic: No Symptoms All Other Systems: Reviewed and Negative - Past Medical History Pertinent Past Medical History: Yes Neurological History: No Pertinent History ENT History: No Pertinent History Cardiac History: No Pertinent History Respiratory History: No Pertinent History Endocrine Medical History: Diabetes Type II Musculoskeletal History: No Pertinent History GI Medical History: No Pertinent History History: No Pertinent History Psycho-Social History: No Pertinent History Male Reproductive Disorders: No Pertinent History Other Medical History: Chronic Back Pain - Past Surgical History Past Surgical History: Yes Neuro Surgical History: No Pertinent History Cardiac: No Pertinent History Respiratory: No Pertinent History Gastrointestinal: Cholecystectomy Genitourinary: No Pertinent History Musculoskeletal: No Pertinent History Male Surgical History: No Pertinent History Other Surgical History: HX RT Knee Scope - Social History Smoking Status: Current every day smoker How long have you smoked: 30 years Exposure to second hand smoke: Yes Drug Use: none Patient Lives Alone: No - Nursing Vital Signs Nursing Vital Signs: Initial Vital Signs Temperature 101.7 F 03/12/21 13:06 Pulse Rate 59 L 03/12/21 13:06 Respiratory Rate 20 03/12/21 13:06 Blood Pressure 152/85 03/12/21 13:06 O2 Sat by Pulse Oximetry 96 03/12/21 13:06 Pain Scale Pain Intensity 0 - Physical Exam General Appearance: no apparent distress, alert, obese, other (Skin warm to touch.) Eye Exam: PERRL/EOMI, eyes nml inspection Ears, Nose, Throat Exam: normal ENT inspection, TMs normal, pharynx normal, moist mucous membranes Neck Exam: normal inspection, non-tender, supple, full range of motion, other (No meningeal signs.) Respiratory Exam: normal breath sounds, lungs clear, airway intact, No respiratory distress Cardiovascular Exam: regular rate/rhythm, normal heart sounds, normal peripheral pulses Gastrointestinal/Abdomen Exam: soft, normal bowel sounds, No tenderness, No mass Back Exam: normal inspection, normal range of motion, No CVA tenderness, No vertebral tenderness Extremity Exam: normal inspection, normal range of motion, pelvis stable Neurologic Exam: alert, oriented x 3, cooperative, normal mood/affect, sensation nml, No motor deficits Skin Exam: normal color, warm, dry, No rash Lymphatic Exam: No adenopathy SpO2 Interpretation: normal SpO2: 95 O2 Delivery: Room Air - Course Nursing assessment & vital signs reviewed: Yes EKG Interpreted by Me: RATE (102), Sinus Rhythm, NORMAL AXIS, Left Bundle Branch Block - Radiology Exams Chest X-ray Interpretation: Teleradiologist Report (Portable apical lordotic chest remains clear. Heart not enlarged. Bony thorax intact. No new acute abnormalities.) Ordered Tests: Active Orders 24 hr Category Date Time Status EKG-ER Only STAT Care 03/12/21 14:15 Active IV Insertion STAT Care 03/12/21 14:21 Active CHEST 1 VIEW (PORTABLE) Stat Exams 03/12/21 13:32 Completed CBC W DIFF Stat Lab 03/12/21 14:46 Completed CMP Stat Lab 03/12/21 14:46 Completed TROPONIN Q3H Lab 03/12/21 14:00 Completed TROPONIN Q3H Lab 03/12/21 16:44 Completed TROPONIN Q3H Lab 03/12/21 22:15 Ordered TROPONIN Q3H Lab 03/13/21 01:15 Ordered TROPONIN Q3H Lab 03/13/21 04:15 Ordered UA W/RFX UR CULTURE Stat Lab 03/12/21 14:46 Completed Medication Summary Discontinued Medications Generic Name Dose Route Start Last Admin Trade Name Freq PRN Reason Stop Dose Admin Acetaminophen 500 mg 03/12/21 13:43 03/12/21 13:47 Acetaminophen 500 Mg Tablet PO 03/12/21 13:44 500 mg STAT STA Administration Acetaminophen Confirm 03/12/21 13:45 Acetaminophen 500 Mg Tablet Administered 03/12/21 13:46 Dose 500 mg .ROUTE .STK-MED ONE Sodium Chloride 1,000 mls @ 999 mls/hr 03/12/21 14:21 03/12/21 16:13 Sodium Chloride 0.9% 1000 Ml IV 03/12/21 15:21 Infused .Q1H1M STA Infusion Sodium Chloride Confirm 03/12/21 15:02 Sodium Chloride 0.9% 1000 Ml Administered 03/12/21 15:03 Dose 1,000 mls @ ud .ROUTE .STK-MED ONE Ketorolac Tromethamine 60 mg 03/12/21 13:43 03/12/21 13:46 Ketorolac Tromethamine 30 Mg/Ml Inj IM 03/12/21 13:44 60 mg STAT ONE Administration Ketorolac Tromethamine Confirm 03/12/21 13:45 Ketorolac Tromethamine 30 Mg/Ml Inj Administered 03/12/21 13:46 Dose 60 mg .ROUTE .STK-MED ONE Lab/Rad Data: Laboratory Result Diagrams 03/12/21 14:46 03/12/21 14:46 Laboratory Results 03/12/21 03/12/21 03/12/21 Range/Units 16:44 14:46 14:46 WBC 3.9 L (4.0-10.5) K/mm3 RBC 5.09 (4.1-5.6) M/mm3 Hgb 15.4 (12.5-18.0) gm/dl Hct 46.0 (42-50) % MCV 90.4 (78-100) fl MCH 30.3 (26-32) pg MCHC 33.5 (32-36) g/dl RDW 14.0 (11.5-14.0) % Plt Count 132 L (150-450) K/mm3 MPV 9.5 (7.5-11.0) fl Gran % 68.8 H (36.0-66.0) % Eos # (Auto) 0.10 (0-0.5) Absolute Lymphs (auto) 0.58 L (1.0-4.6) Absolute Monos (auto) 0.52 (0.0-1.3) Lymphocytes % 14.8 L (24.0-44.0) % Monocytes % 13.3 H (0.0-12.0) % Eosinophils % 2.6 (0.00-5.0) % Basophils % 0.5 (0.0-0.4) % Absolute Granulocytes 2.70 (1.4-6.9) Basophils # 0.02 (0-0.4) Sodium 140 (137-145) mmol/L Potassium 3.8 (3.5-5.1) mmol/L Chloride 105 (98-107) mmol/L Carbon Dioxide 25 (22-30) mmol/L Anion Gap 13.1 (5-15) MEQ/L BUN 15 (9-20) mg/dL Creatinine 0.86 (0.66-1.25) mg/dL Estimated GFR > 60.0 ML/MIN Glucose 259 H (74-106) mg/dL Calcium 8.9 (8.4-10.2) mg/dL Total Bilirubin 0.40 (0.2-1.3) mg/dL AST 36 (17-59) U/L ALT 38 (0-50) U/L Alkaline Phosphatase 78 (38-126) U/L Troponin I 0.023 (0.000-0.034) ng/mL Serum Total Protein 6.7 (6.3-8.2) g/dL Albumin 3.9 (3.5-5.0) g/dL Urine Color (YELLOW) Urine Appearance (CLEAR) Urine pH (5-6) Ur Specific [place] (1.005-1.025) Urine Protein (Negative) Urine Ketones (NEGATIVE) Urine Blood (0-5) Daniel/ul Urine Nitrite (NEGATIVE) Urine Bilirubin (NEGATIVE) Urine Urobilinogen (0-1) mg/dL Ur Leukocyte Esterase (NEGATIVE) Urine WBC (Auto) (0-5) /HPF Urine RBC (Auto) (0-2) /HPF U Epithel Cells (Auto) (FEW) /HPF Urine Bacteria (Auto) (NEGATIVE) /HPF Urine Mucus (Auto) (NEGATIVE) /HPF Urine Culture Reflexed (NO) Urine Glucose (NEGATIVE) mg/dL 03/12/21 03/12/21 Range/Units 14:46 14:00 WBC (4.0-10.5) K/mm3 RBC (4.1-5.6) M/mm3 Hgb (12.5-18.0) gm/dl Hct (42-50) % MCV (78-100) fl MCH (26-32) pg MCHC (32-36) g/dl RDW (11.5-14.0) % Plt Count (150-450) K/mm3 MPV (7.5-11.0) fl Gran % (36.0-66.0) % Eos # (Auto) (0-0.5) Absolute Lymphs (auto) (1.0-4.6) Absolute Monos (auto) (0.0-1.3) Lymphocytes % (24.0-44.0) % Monocytes % (0.0-12.0) % Eosinophils % (0.00-5.0) % Basophils % (0.0-0.4) % Absolute Granulocytes (1.4-6.9) Basophils # (0-0.4) Sodium (137-145) mmol/L Potassium (3.5-5.1) mmol/L Chloride (98-107) mmol/L Carbon Dioxide (22-30) mmol/L Anion Gap (5-15) MEQ/L BUN (9-20) mg/dL Creatinine (0.66-1.25) mg/dL Estimated GFR ML/MIN Glucose (74-106) mg/dL Calcium (8.4-10.2) mg/dL Total Bilirubin (0.2-1.3) mg/dL AST (17-59) U/L ALT (0-50) U/L Alkaline Phosphatase (38-126) U/L Troponin I 0.018 (0.000-0.034) ng/mL Serum Total Protein (6.3-8.2) g/dL Albumin (3.5-5.0) g/dL Urine Color YELLOW (YELLOW) Urine Appearance CLEAR (CLEAR) Urine pH 5.0 (5-6) Ur Specific [place] 1.030 (1.005-1.025) Urine Protein NEGATIVE (Negative) Urine Ketones NEGATIVE (NEGATIVE) Urine Blood NEGATIVE (0-5) Daniel/ul Urine Nitrite NEGATIVE (NEGATIVE) Urine Bilirubin NEGATIVE (NEGATIVE) Urine Urobilinogen NEGATIVE (0-1) mg/dL Ur Leukocyte Esterase NEGATIVE (NEGATIVE) Urine WBC (Auto) NONE (0-5) /HPF Urine RBC (Auto) NONE (0-2) /HPF U Epithel Cells (Auto) NONE (FEW) /HPF Urine Bacteria (Auto) NONE (NEGATIVE) /HPF Urine Mucus (Auto) SLIGHT (NEGATIVE) /HPF Urine Culture Reflexed NO (NO) Urine Glucose >=500 (NEGATIVE) mg/dL - Progress Progress: improved Progress Note: Patient reassessed. He feels well. Fever resolved. Patient has a mild leukopenia consistent with what is typically seen in COVID-19. Outpatient COVID test ordered. EKG reveals an old left bundle branch block. Patient has no chest pain or shortness of breath. Tachycardia resolved. Troponin negative. Patient states he feels well. Patient is requesting discharge. He voices no other complaints or concerns at this time. Chest x-ray is negative. Patient will quarantine due to possible COVID-19. He agrees to follow-up with primary care doctor within 48 hours for reevaluation. Patient states that he is going to chart picker his diabetic medications today. Mild hyperglycemia. No anion gap. No DKA. Patient voices no other complaints at this time. Will discharge home. Portions of this note were created with voice recognition technology. There may be grammatical, spelling, punctuation or sound alike errors 03/12/21 15:22 Troponin negative 03/12/21 16:37 Patient's repeat troponin is negative however it is trending upward. We advised admission. Patient states he has obligations at preclude him from admission. P Patient is of sound mind. Patient is appropriate to make informed and independent medical decisions. Patient understands that leaving AGAINST MEDICAL ADVICE can result in delayed diagnosis, increased risk of morbidity, mortality, short and long-term disability including . In spite of these risks, patient has decided to leave AGAINST MEDICAL ADVICE. Patient understands that he may return to our ED at any point if he reconsiders. Patient agrees to follow-up with his primary care doctor within 48 hours for reevaluation. Patient voices no other complaints or concerns at this time. We will release patient AGAINST MEDICAL ADVICE per their request. 03/12/21 17:51 Portions of this note were created with voice recognition technology. There may be grammatical, spelling, punctuation or sound alike errors Counseled pt/family regarding: lab results, diagnosis, need for follow-up, rad results - Departure Departure Disposition: AMA Clinical Impression: Fever, Cough, Non compliance w medication regimen, Elevated troponin Condition: Stable Critical Care Time: No Referrals: DOCTOR,NO FAMILY [Primary Care Provider] - Follow up/PCP as directed ROBERT CANSECO DO [ACTIVE STAFF] - Follow up/PCP as directed Additional Instructions: Discharge/Care Plan SANDY BARTHOLOMEW JR was seen on 03/12/21 in the Emergency Room. The patient was counseled regarding Diagnosis,Lab results, Imaging studies, need for follow up and when to return to the Emergency Room. Prescriptions given: Discharge Note I have spoken with the patient and/or caregivers. I have explained the patient's condition, diagnosis and treatment plan based on the information available to me at this time. I have answered the patient's and/or caregiver's questions and addressed any concerns. The patient and/or caregivers have as good understanding of the patient's diagnosis, condition and treatment plan as can be expected at this point. The vital signs have been stable. The patient's condition is stable and appropriate for discharge from the emergency department. The patient will pursue further outpatient evaluation with the primary care physician or other designated or consulting physician as outlined in the discharge instructions. The patient and/or caregivers are agreeable to this plan of care and follow-up instructions have been explained in detail. The patient and/or caregivers have received these instruction. The patient/and or caregivers are aware that any significant change in condition or worsening of symptoms should prompt an immediate return to this or the closest emergency department or call 911.
[2021-03-12 14:50] LABS: Basophil (Absolute #) 0.02 (0-0.4); Eosinophil % 2.6 % (0.00-5.0); Hemoglobin 15.4 gm/dl (12.5-18.0); Lymphocyte (Absolute #) 0.58 (1.0-4.6); Lymphocytes % 14.8 % (24.0-44.0); Mean Cell Volume 90.4 fl (78-100); Mean Corpuscular Hemoglobin 30.3 pg (26-32); Mean Corpuscular Hgb Concent. 33.5 g/dl (32-36); Mean Platelet Volume 9.5 fl (7.5-11.0); Monocyte (Absolute #) 0.52 (0.0-1.3); Monocytes % 13.3 % (0.0-12.0); Neutrophil % 68.8 % (36.0-66.0); Platelet Count 132 K/mm3 (150-450); Red Blood Count 5.09 M/mm3 (4.1-5.6); White Blood Count 3.9 K/mm3 (4.0-10.5)
[2021-03-12] MEDS ORDERED: Sodium Chloride 0.9% 1000 ML 1,000 ML ONE (15:02)
[2021-03-12 15:06] LABS: ALBUMIN 3.9 g/dL (3.5-5.0); ALKALINE PHOSPHATASE 78 U/L (38-126); ANION GAP 13.1 MEQ/L (5-15); BLOOD UREA NITROGEN 15 mg/dL (9-20); CHLORIDE 105 mmol/L (98-107); Calcium 8.9 mg/dL (8.4-10.2); Carbon Dioxide 25 mmol/L (22-30); Creatinine 1 0.86 mg/dL (0.66-1.25); EST GLOMERULAR FILTRATION RATE > 60.0 ML/MIN; Glucose 259 mg/dL (74-106); Potassium 3.8 mmol/L (3.5-5.1); SGOT/AST 36 U/L (17-59); SGPT/ALT 38 U/L (0-50); SODIUM 140 mmol/L (137-145); Total Protein 6.7 g/dL (6.3-8.2)
[2021-03-12 15:11] LABS: Appearance CLEAR (CLEAR); Bilirubin NEGATIVE (NEGATIVE); Blood NEGATIVE Ery/ul (0-5); Glucose >=500 mg/dL (NEGATIVE); Ketones NEGATIVE (NEGATIVE); Leukocyte Esterase NEGATIVE (NEGATIVE); Mucus SLIGHT /HPF (NEGATIVE); Nitrite NEGATIVE (NEGATIVE); Protein,Urine Dip NEGATIVE (Negative); Urobilinogen NEGATIVE mg/dL (0-1)
[2021-03-12 16:11] VITALS: BP 113/69; PULSE 88
[2021-03-13 02:39] LABS: Slide Review 1 YES
== END 2021-03-12 17:53 | disposition left against medical advice (07) ==
LOC: ED 13:05
DX: R50.9 Fever, unspecified (principal); R05.9 Cough, unspecified; Z91.14 Patient's other noncompliance with medication regimen; R77.8 Other specified abnormalities of plasma proteins; E11.9 Type 2 diabetes mellitus without complications; Z79.84 Long term (current) use of oral hypoglycemic drugs; Z79.899 Other long term (current) drug therapy; Z72.0 Tobacco use
CPT/HCPCS: 36000; 36415; 71045; 80053; 81001; 84484; 85025; 93005; 96360; 96372; 99284; U0003; J1885; A9270-GY

== ENCOUNTER 2021-05-26 20:21 | Emergency (ER) | payer BC ==
[2021-05-26] MEDS ORDERED: TORAdol 30 mg Injection IM ONE (21:01)
[2021-05-26] MEDS ORDERED: TORAdol 30 mg Injection ONE (21:02)
--- NOTE | 2021-05-26 21:32 | ERPHSYRPT ---
- History of Present Illness Source: patient Exam Limitations: no limitations Patient Subjective Stated Complaint: Patient states that he began having pain behind his left knee a few weeks ago. The pain has become significantly worse in the past 2 days and is now radiating down his leg. States, "it even hits me in my lower back at times." Triage Nursing Assessment: Patient ambulated back to ED. He refused the use of a wheelchair but accepted crutches. His gait is impaired due to noted pain if he attempts to put any weight on his LLE. Visible s/s of pain noted on patient during ambulation even with crutches. Pedal pulse present in left foot. Patient cringes and jerks in bed when attempting to check popliteal pulse to LLE. Nurse unable to assess related to pain level. Vericose veins and some swelling noted to both BLE. Left bryson area warmer than right bryson area. Patient states that his LLE has always been a bit discolored in comaprison to RLE. Color appears the same in both BLE at this time to nurse. Physician History: 45 yo wm w L posterior knee pain x 2wks. Pt denies injury and states that pain is worse weight bearing. He denies previous knee pain/chest pain/dyspnea/fever. Pt has not seen a physician about the pain. Method of Injury: unknown (Denies injury) Occurred: other (2 wks) Quality: constant, aching Severity of Pain-Max: severe Severity of Pain-Current: severe Lower Extremities Pain: leg: left, knee: left Modifying Factors: Improves With: movement Associated Symptoms: unable to bear weight, No snapping sensation, No popping sensation Allergies/Adverse Reactions: No Known Drug Allergies Allergy (Verified 05/26/21 20:30) Home Medications: Metformin HCl 1000 mg [Glucophage 1000 MG] 1,000 mg PO BID 10/11/14 [History] Glipizide 5 mg [Glucotrol 5 MG] 5 mg PO BID 07/12/16 [History] Empagliflozin [Jardiance] 25 mg PO DAILY 12/04/18 [History] Semaglutide [Ozempic] 50 mg SQ WEEKLY 02/04/20 [History] Cholecalciferol (Vitamin D3) [Vitamin D] 5,000 units PO BID 08/14/20 [History] Hx Tetanus, Diphtheria Vaccination/Date Given: No (Maybe not tetanus) Hx Influenza Vaccination/Date Given: Yes Hx Pneumococcal Vaccination/Date Given: Yes Immunizations Up to Date: Yes Travel Risk - International Travel Have you traveled outside of the country in past 3 weeks: No - Coronavirus Screening Are you exhibiting any of the following symptoms?: No Close contact with a COVID-19 positive Pt in past 14-21 Days: No - Vaccine Status Have you recieved a Covid-19 vaccination: Yes 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[employer] - Vaccination Dates Date of 2cond Vaccination (if applicable): 11/10/20 - Review of Systems Constitutional: No Symptoms Eyes: No Symptoms Ears, Nose, & Throat: No Symptoms Respiratory: No Symptoms Cardiac: No Symptoms Abdominal/Gastrointestinal: No Symptoms Genitourinary Symptoms: No Symptoms Musculoskeletal: Arthralgias Skin: No Symptoms Neurological: No Symptoms Psychological: No Symptoms Endocrine: No Symptoms Hematologic/Lymphatic: No Symptoms Immunological/Allergic: No Symptoms - Past Medical History Pertinent Past Medical History: Yes Neurological History: No Pertinent History ENT History: No Pertinent History Cardiac History: No Pertinent History Respiratory History: No Pertinent History Endocrine Medical History: Diabetes Type II Musculoskeletal History: No Pertinent History GI Medical History: No Pertinent History History: No Pertinent History Psycho-Social History: No Pertinent History Male Reproductive Disorders: No Pertinent History Other Medical History: Chronic Back Pain, Varicose Veins - Past Surgical History Past Surgical History: Yes Neuro Surgical History: No Pertinent History Cardiac: No Pertinent History Respiratory: No Pertinent History Gastrointestinal: Cholecystectomy Genitourinary: No Pertinent History Musculoskeletal: No Pertinent History Male Surgical History: No Pertinent History Other Surgical History: HX RT Knee Scope - Social History Smoking Status: Current every day smoker How long have you smoked: 30 years Exposure to second hand smoke: Yes Drug Use: none Patient Lives Alone: No Significant Family History: no pertinent family hx - Nursing Vital Signs Nursing Vital Signs: Initial Vital Signs Temperature 97.8 F 05/26/21 20:31 Pulse Rate 58 L 05/26/21 20:31 Respiratory Rate 20 05/26/21 20:31 Blood Pressure 157/82 05/26/21 20:31 O2 Sat by Pulse Oximetry 98 05/26/21 20:31 Pain Scale Pain Intensity 3 Hypertensive/Crow - Physical Exam General Appearance: no apparent distress (In pain) Eyes, Ears, Nose, Throat Exam: normal ENT inspection, TMs normal, pharynx normal, moist mucous membranes Neck Exam: normal inspection, non-tender, supple, full range of motion, No Brudzinski, No Kernig's, No meningismus Cardiovascular/Respiratory Exam: normal breath sounds, heart sounds normal, bradycardia Gastrointestinal/Abdominal Exam: non-tender, soft Back Exam: normal inspection, normal range of motion, No CVA tenderness, No vertebral tenderness Hips Exam: bilateral: non-tender, normal inspection, normal range of motion Legs Exam: left leg: swelling (L calf w mild edema and mod TTP/No Jemal's sign/Good pedal pulse, distal sensation, and capillary return) Knees Exam: left knee: deformity (TTP lateral joint line/No edema/Good popliteal pulse) Ankle Exam: bilateral ankle: non-tender, normal inspection, normal range of motion, no evidence of injury Foot Exam: left foot: other (Good distal capillary return, sensation, and pedal pulse) Neuro/Tendon Exam: normal sensation, normal motor functions, normal tendon functions, responds to pain, no evidence tendon injury, No motor deficit, No sensory deficit Mental Status Exam: alert, oriented x 3, cooperative Skin Exam: normal color, warm, dry SpO2 Interpretation: normal SpO2: 98 O2 Delivery: Room Air - Course Nursing assessment & vital signs reviewed: Yes - Radiology Exams Knee X-ray Interpretation: Interpreted by me (L knee neg per ER read) - Radiology Ultrasound Exam Venous Lower Extremity Ultrasound: Other (No DVT/small superficial thrombosis L posterior calf) Ordered Tests: Active Orders 24 hr Category Date Time Status Crutches STAT Care 05/26/21 22:48 Completed KNEE (3 VIEWS) Stat Exams 05/26/21 21:13 Taken VENOUS UNILAT/LIMITED EXTREMIT [US] Stat Exams 05/26/21 21:30 Taken D-DIMER QUANTITATIVE Stat Lab 05/26/21 21:00 Completed ESR [Erythrocyte Sedimentation Rate] Stat Lab 05/26/21 21:10 Completed Uric Acid Stat Lab 05/26/21 21:10 Completed Medication Summary Discontinued Medications Generic Name Dose Route Start Last Admin Trade Name Freq PRN Reason Stop Dose Admin Hydromorphone HCl 1 mg 05/26/21 22:04 05/26/21 22:07 Hydromorphone 1 Mg/1ml Inj 1 Mg/Ml Syringe IM 05/26/21 22:05 1 mg STAT ONE Administration Hydromorphone HCl Confirm 05/26/21 22:06 Hydromorphone 1 Mg/1ml Inj 1 Mg/Ml Syringe Administered 05/26/21 22:07 Dose 1 mg .ROUTE .STK-MED ONE Ketorolac Tromethamine 60 mg 05/26/21 21:01 05/26/21 21:08 Ketorolac Tromethamine 30 Mg/Ml Inj IM 05/26/21 21:02 60 mg STAT ONE Administration Ketorolac Tromethamine Confirm 05/26/21 21:02 Ketorolac Tromethamine 30 Mg/Ml Inj Administered 05/26/21 21:03 Dose 60 mg .ROUTE .STK-MED ONE Ondansetron HCl 4 mg 05/26/21 22:04 05/26/21 22:07 Zofran 4 Mg/Udtablet Orally Disintegrating PO 05/26/21 22:05 4 mg STAT ONE Administration Ondansetron HCl Confirm 05/26/21 22:07 Zofran 4 Mg/Udtablet Orally Disintegrating Administered 05/26/21 22:08 Dose 4 mg .ROUTE .STK-MED ONE Lab/Rad Data: Laboratory Results 05/26/21 05/26/21 05/26/21 Range/Units 21:10 21:10 21:00 ESR 2 (0-15) mm/hr D-Dimer 425 (215-500) ng/mL Uric Acid 5.5 (3.5-7.2) mg/dL - Progress Progress: improved Progress Note: 05/26/21 22:07 60mg IM Toradol wo improvement 05/26/21 22:08 Inspect Norco10 #28 11/23/20, [place] 7.5 #12 08/14/20 05/26/21 22:52 1mg IM Dilaudid/4mg Zofran ODT 05/26/21 23:51 Pain improved before discharge Crutches per nursing/NVI Counseled pt/family regarding: lab results, diagnosis, need for follow-up, rad results - Departure Departure Disposition: Home Clinical Impression: Superficial thrombosis of left lower extremity Condition: Stable Critical Care Time: No Referrals: DOCTOR,NO FAMILY [Primary Care Provider] - Follow up/PCP as directed Instructions: Phlebitis (DC) Additional Instructions: Elevate leg Take a full strength aspirin once daily(324mg) Use crutches as needed Follow with your family MD on Friday Return to ER for increasing pain, redness, swelling, or temperature greater than 100.5 Prescriptions: Hydrocodone/Acetaminophen [Hydrocodone-Acetamin 10-300 mg] 1 each PO Q4-6HPRN PRN #10 tablet MDD 4 tabs PRN Reason: Pain
[2021-05-26] MEDS ORDERED: Hydromorphone 1 mg/ml Injection IM ONE (22:04)
[2021-05-26] MEDS ORDERED: ZOFRAN ODT 4 MG PO ONE (22:04)
[2021-05-26] MEDS ORDERED: Hydromorphone 1 mg/ml Injection ONE (22:06)
[2021-05-26] MEDS ORDERED: ZOFRAN ODT 4 MG ONE (22:07)
[2021-05-26 23:07] VITALS: BP 128/66; PULSE 74
[2021-05-26 23:52] VITALS: O2SAT 98
--- NOTE | 2021-05-27 07:23 | XRAY ---
Indication: Pain. Two-dimensional sonogram and color Doppler imaging of the major venous vessels of the left leg performed. Comparison: None At the level of the calf there is mild subcutaneous venous varicosity with intraluminal thrombus. No thrombus seen in the deep venous vessels of the left leg including greater saphenous vein. Deep veins demonstrate normal compressibility. Venous waveforms are normal with and without augmentation. Impression: 1. Thrombus in superficial venous varicosity at the level of the calf. 2. Remaining left leg negative for DVT. Comment: Preliminary report was given.
--- NOTE | 2021-05-27 07:29 | XRAY ---
Indication: Pain. No known injury. Comparison: November 23, 2020. 3 view right knee unchanged again demonstrating medial subcutaneous venous varicosities and tiny lower leg subcutaneous calcified granuloma anteriorly. No new/acute bony, articular, or soft tissue abnormalities.
== END 2021-05-26 23:11 | disposition home or self-care (01) ==
LOC: ED 20:21
DX: I82.812 Embolism and thrombosis of superficial veins of left lower extremity (principal); M25.562 Pain in left knee; E11.9 Type 2 diabetes mellitus without complications; Z79.84 Long term (current) use of oral hypoglycemic drugs; Z79.899 Other long term (current) drug therapy; Z72.0 Tobacco use; Z79.891 Long term (current) use of opiate analgesic
CPT/HCPCS: 36415; 73562; 84550; 85379; 85652; 93971; 96372; 99284; J1170; J1885; Q0162

== ENCOUNTER 2021-11-14 04:43 | Emergency (ER) | payer BC ==
--- NOTE | 2021-11-14 04:47 | ERPHSYRPT ---
- History of Present Illness Historian: patient Exam Limitations: no limitations Timing/Duration: yesterday Quality: cramping, sharpness Abdominal Pain Onset Location: periumbilical Pain Radiation: no radiation Severity of Pain-Max: moderate Severity of Pain-Current: moderate Modifying Factors: Improves With: nothing Associated Symptoms: loss of appetite, nausea, No chest pain, No shortness of breath Previous symptoms: no prior history, no recent treatment Hx Tetanus, Diphtheria Vaccination/Date Given: No (Maybe not tetanus) Hx Influenza Vaccination/Date Given: Yes Hx Pneumococcal Vaccination/Date Given: Yes <VESTA RAMIREZ - Last Filed: 11/14/21 06:52> <CARROL DUDLEY - Last Filed: 11/14/21 09:28> - History of Present Illness Time Seen by Provider: 11/14/21 04:47 Physician History: This is a 46-year-old obese white male who presents with infraumbilical abdominal pain. His initial episode was yesterday morning. He sought evaluation in urgent care. No work-up was performed. He was told that if his symptoms got worse to go to the emergency room. He had another episode that began this morning. The pain is sharp and crampy like. He has had no diarrhea and no vomiting. However, unlike yesterday morning, he is now nauseated and is constipated. The patient states that between these 2 episodes the pain never completely resolved. Patient has had a cholecystectomy in the past but no other abdominal surgeries. Patient drove himself into the emergency department but states that if needed, he can get a ride home. He denies shortness of breath and he denies chest pain. He has not had a fever. The patient has history of diabetes and chronic lower back pain. Patient is a chronic daily smoker of ciga rettes. (VESTA RAMIREZ) Allergies/Adverse Reactions: No Known Drug Allergies Allergy (Verified 11/14/21 05:02) Home Medications: Metformin HCl 1000 mg [Glucophage 1000 MG] 1,000 mg PO BID 10/11/14 [History] Glipizide 5 mg [Glucotrol 5 MG] 5 mg PO BID 07/12/16 [History] Empagliflozin [Jardiance] 25 mg PO DAILY 12/04/18 [History] Cholecalciferol (Vitamin D3) [Vitamin D] 5,000 units PO WEEKLY 08/14/20 [History] Apixaban [Eliquis 5 mg Tablet] 5 mg PO BID 11/14/21 [History] Travel Risk - International Travel Have you traveled outside of the country in past 3 weeks: No - Coronavirus Screening Are you exhibiting any of the following symptoms?: No Close contact with a COVID-19 positive Pt in past 14-21 Days: No - Vaccine Status Have you recieved a Covid-19 vaccination: Yes 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: [employer] - Vaccination Dates Date of 2cond Vaccination (if applicable): 11/10/20 <VESTA RAMIREZ - Last Filed: 11/14/21 06:52> - Review of Systems Constitutional: No Symptoms Eyes: No Symptoms Ears, Nose, & Throat: No Symptoms Respiratory: No Symptoms Cardiac: No Symptoms Abdominal/Gastrointestinal: Abdominal Pain, Nausea, Constipation, No Vomiting, No Diarrhea Genitourinary Symptoms: No Symptoms Musculoskeletal: No Symptoms Skin: No Symptoms Neurological: No Symptoms Psychological: No Symptoms Endocrine: No Symptoms Hematologic/Lymphatic: No Symptoms Immunological/Allergic: No Symptoms All Other Systems: Reviewed and Negative <VESTA RAMIREZ - Last Filed: 11/14/21 06:52> - Past Medical History Pertinent Past Medical History: Yes Neurological History: No Pertinent History ENT History: No Pertinent History Cardiac History: No Pertinent History Respiratory History: No Pertinent History Endocrine Medical History: Diabetes Type II Musculoskeletal History: No Pertinent History GI Medical History: No Pertinent History History: No Pertinent History Psycho-Social History: No Pertinent History Male Reproductive Disorders: No Pertinent History Other Medical History: Chronic Back Pain, Varicose Veins - Past Surgical History Past Surgical History: Yes Neuro Surgical History: No Pertinent History Cardiac: No Pertinent History Respiratory: No Pertinent History Gastrointestinal: Cholecystectomy Genitourinary: No Pertinent History Musculoskeletal: No Pertinent History Male Surgical History: No Pertinent History Other Surgical History: HX RT Knee Scope - Social History Smoking Status: Current every day smoker How long have you smoked: 30 years Exposure to second hand smoke: Yes Drug Use: none Patient Lives Alone: No Significant Family History: no pertinent family hx <VESTA RAMIREZ - Last Filed: 11/14/21 06:52> - Physical Exam General Appearance: mild distress, alert, anxiety, obese Eye Exam: PERRL/EOMI, eyes nml inspection Ears, Nose, Throat Exam: normal ENT inspection, moist mucous membranes Neck Exam: normal inspection, non-tender, supple, full range of motion Respiratory Exam: normal breath sounds, lungs clear, airway intact, No chest tenderness, No respiratory distress Cardiovascular Exam: regular rate/rhythm, normal heart sounds, normal peripheral pulses Gastrointestinal/Abdomen Exam: soft, normal bowel sounds, tenderness (Periumbilical and infraumbilical), guarding (Periumbilical and infraumbilical), rebound (Mild to palpation) Rectal Exam: not done Back Exam: normal inspection, normal range of motion, No CVA tenderness, No vertebral tenderness Extremity Exam: normal inspection, normal range of motion, pelvis stable Neurologic Exam: alert, oriented x 3, cooperative, genetic counselor II-XII nml as tested, normal mood/affect, nml cerebellar function, nml station & gait, sensation nml Skin Exam: normal color, warm, dry Lymphatic Exam: No adenopathy SpO2 Interpretation: normal O2 Delivery: Room Air <VESTA RAMIREZ - Last Filed: 11/14/21 06:52> - Nursing Vital Signs Nursing Vital Signs: Initial Vital Signs Temperature 97.0 F 11/14/21 04:51 Pulse Rate 64 11/14/21 04:51 Respiratory Rate 20 11/14/21 04:51 Blood Pressure 148/80 11/14/21 04:51 O2 Sat by Pulse Oximetry 98 11/14/21 04:51 Pain Scale Pain Intensity 5 - Course Nursing assessment & vital signs reviewed: Yes <VESTA RAMIREZ - Last Filed: 11/14/21 06:52> - CT Exams Abdomen/Pelvis CT Interpretation: Tele-radiologist Report (Ventral hernia w fat incarceration) <CARROL DUDLEY - Last Filed: 11/14/21 09:28> Ordered Tests: Active Orders 24 hr Category Date Time Status IV Insertion STAT Care 11/14/21 04:58 Active ABDOMEN AND PELVIS W/0 CONTRAS [CT] Stat Exams 11/14/21 04:58 Completed AMYLASE Stat Lab 11/14/21 05:07 Completed CBC W DIFF Stat Lab 11/14/21 05:07 Completed CMP Stat Lab 11/14/21 05:07 Completed LIPASE Stat Lab 11/14/21 05:07 Completed UA W/RFX CULTURE Stat Lab 11/14/21 05:15 Completed Medication Summary Discontinued Medications Generic Name Dose Route Start Last Admin Trade Name Manpreet PRRadha Reason Stop Dose Admin Hydromorphone HCl 1 mg 11/14/21 04:58 11/14/21 05:12 Hydromorphone 1 Mg/1ml Inj 1 Mg/Ml Syringe IV 11/14/21 04:59 1 mg STAT ONE Administration Hydromorphone HCl Confirm 11/14/21 05:09 Hydromorphone 1 Mg/1ml Inj 1 Mg/Ml Syringe Administered 11/14/21 05:10 Dose 1 mg .ROUTE .STK-MED ONE Sodium Chloride 1,000 mls @ 999 mls/hr 11/14/21 04:58 11/14/21 07:23 Sodium Chloride 0.9% 1000 Ml IV 11/14/21 05:58 Infused .Q1H1M STA Infusion Sodium Chloride Confirm 11/14/21 05:09 Sodium Chloride 0.9% 1000 Ml Administered 11/14/21 05:10 Dose 1,000 mls @ ud .ROUTE .STK-MED ONE Ketorolac Tromethamine 15 mg 11/14/21 07:35 11/14/21 07:40 Ketorolac Tromethamine 30 Mg/Ml Inj IV 11/14/21 07:36 15 mg STAT ONE Administration Ketorolac Tromethamine Confirm 11/14/21 07:39 Ketorolac Tromethamine 30 Mg/Ml Inj Administered 11/14/21 07:40 Dose 30 mg .ROUTE .STK-MED ONE Ondansetron HCl 4 mg 11/14/21 04:58 11/14/21 05:12 Ondansetron Hcl 4 Mg/2 Ml Vial IV 11/14/21 04:59 4 mg STAT ONE Administration Ondansetron HCl Confirm 11/14/21 05:09 Ondansetron Hcl 4 Mg/2 Ml Vial Administered 11/14/21 05:10 Dose 4 mg .ROUTE .STK-MED ONE Lab/Rad Data: Laboratory Result Diagrams 11/14/21 05:07 11/14/21 05:07 Laboratory Results 11/14/21 11/14/21 11/14/21 Range/Units 05:15 05:07 05:07 WBC 7.0 (4.0-10.5) x10^3/uL RBC 5.20 (4.1-5.6) x10^6/uL Hgb 15.7 (12.5-18.0) g/dL Hct 49.1 (42-50) % MCV 94.4 (78-100) fL MCH 30.2 (26-32) pg MCHC 32.0 (32-36) g/dL RDW 14.0 (11.5-14.0) % Plt Count 161 (150-450) x10^3/uL MPV 9.4 (7.5-11.0) fL Gran % 53.4 (36.0-66.0) % Immature Gran % (Auto) 0.3 (0.00-0.4) % Nucleat RBC Rel Count 0.0 (0.00-0.1) % Eos # (Auto) 0.22 (0-0.5) x10^3/uL Immature Gran # (Auto) 0.02 (0.00-0.03) x10^3u/L Absolute Lymphs (auto) 2.46 (1.0-4.6) x10^3/uL Absolute Monos (auto) 0.51 (0.0-1.3) x10^3/uL Absolute Nucleated RBC 0.00 (0.00-0.01) x10^3u/L Lymphocytes % 35.2 (24.0-44.0) % Monocytes % 7.3 (0.0-12.0) % Eosinophils % 3.2 (0.00-5.0) % Basophils % 0.6 (0.0-0.4) % Absolute Granulocytes 3.73 (1.4-6.9) x10^3/uL Basophils # 0.04 (0-0.4) x10^3/uL Sodium 142 (137-145) mmol/L Potassium 4.0 (3.5-5.1) mmol/L Chloride 108 H (98-107) mmol/L Carbon Dioxide 30 (22-30) mmol/L Anion Gap 8.4 (5-15) MEQ/L BUN 23 H (9-20) mg/dL Creatinine 0.82 (0.66-1.25) mg/dL Estimated GFR > 60.0 ML/MIN Glucose 196 H (74-106) mg/dL Calcium 9.2 (8.4-10.2) mg/dL Total Bilirubin 0.40 (0.2-1.3) mg/dL AST 26 (17-59) U/L ALT 28 (0-50) U/L Alkaline Phosphatase 76 (38-126) U/L Serum Total Protein 7.2 (6.3-8.2) g/dL Albumin 4.2 (3.5-5.0) g/dL Amylase 71 (30-110) U/L Lipase 46 (23-300) U/L Urinalys Dipstick Clnc MAIN LAB Urine Color LT.YELLOW (YELLOW) Urine Appearance CLEAR (CLEAR) Urine pH 6.0 (5-6) Ur Specific [place] 1.015 (1.005-1.025) POC Urine Protein Conf NEGATIVE (Negative) Urine Ketones NEGATIVE (NEGATIVE) Urine Nitrite NEGATIVE (NEGATIVE) Urine Bilirubin NEGATIVE (NEGATIVE) Urine Urobilinogen 0.2 (0-1) mg/dL Urine Leukocytes NEGATIVE (NEGATIVE) Urine WBC (Auto) NONE (0-5) /HPF Urine RBC (Auto) NONE (0-2) /HPF U Epithel Cells (Auto) NONE (FEW) /HPF Urine Bacteria (Auto) NONE (NEGATIVE) /HPF Urine RBC TRACE NON-HEM (0-5) Daniel/ul Ur Culture Indicated? NO Urine Glucose >=1000 (NEGATIVE) mg/dL - Progress Progress: improved, re-examined Counseled pt/family regarding: lab results, diagnosis, need for follow-up <VESTA RAMIREZ - Last Filed: 11/14/21 06:52> <CARROL DUDLEY - Last Filed: 11/14/21 09:28> - Progress Progress Note: 11/14/21 06:52 Patient care transferred to Dr. Dudley at shift change. He will follow-up on the CAT scan results and make final determination and disposition. (VESTA RAMIREZ) 11/14/21 07:54 Assumed care of pt at 7:00AM w abdominal pain w CT pending. Pt has periumbilical pain currently rated a 6/10. CT pending at 7:00AM which came back at 7:54 demonstrating incarcerated fat in ventral hernia. Pt given 15mg IV Toradol. 11/14/21 08:50 Spoke w stephon Finley to f/u as an outpt. 11/14/21 09:[address] Cross's office after multiple tries. Pt given office number and will call to make an appointment. (CARROL DUDLEY) - Departure Departure Disposition: Home Critical Care Time: No <VESTA RAMIREZ - Last Filed: 11/14/21 06:52> <CARROL DUDLEY - Last Filed: 11/14/21 09:28> - Departure Clinical Impression: Abdominal pain, Ventral hernia Condition: Stable Referrals: JOHN GARCIA PA [Primary Care Provider] - Follow up/PCP as directed Instructions: Severe Abdominal Pain, Adult (DC), Abdominal Hernia (DC) Additional Instructions: Call Dr. Cross's office for follow up appointment [phone] Pain meds as needed(Take a stool softener w pain meds) Return to ER for increasing pain or temperature greater than 100.5 Prescriptions: Hydrocodone/Acetaminophen [Hydrocodone-Acetamin 7.5-325] 1 each PO Q4-6HPRN PRN #6 tablet MDD 4 tabs PRN Reason: Pain
[2021-11-14] MEDS ORDERED: Hydromorphone 1 mg/ml Injection IV ONE (04:58)
[2021-11-14] MEDS ORDERED: Sodium Chloride 0.9% 1000 ML 1,000 ML IV STA (04:58)
[2021-11-14] MEDS ORDERED: Zofran 4 MG/2 ML VIAL IV ONE (04:58)
[2021-11-14] MEDS ORDERED: Sodium Chloride 0.9% 1000 ML 1,000 ML ONE (05:09)
[2021-11-14] MEDS ORDERED: Zofran 4 MG/2 ML VIAL ONE (05:09)
[2021-11-14] MEDS ORDERED: Hydromorphone 1 mg/ml Injection ONE (05:09)
[2021-11-14 05:10] LABS: Absolute Neutrophil Ct (ANC) 3.73 x10^3/uL (1.4-6.9); Basophil (Absolute #) 0.04 x10^3/uL (0-0.4); Eosinophil % 3.2 % (0.00-5.0); Eosinophil (Absolute #) 0.22 x10^3/uL (0-0.5); Hematocrit 49.1 % (42-50); Hemoglobin 15.7 g/dL (12.5-18.0); Lymphocyte (Absolute #) 2.46 x10^3/uL (1.0-4.6); Lymphocytes % 35.2 % (24.0-44.0); Mean Cell Volume 94.4 fL (78-100); Mean Corpuscular Hemoglobin 30.2 pg (26-32); Mean Platelet Volume 9.4 fL (7.5-11.0); Monocyte (Absolute #) 0.51 x10^3/uL (0.0-1.3); Monocytes % 7.3 % (0.0-12.0); Neutrophil % 53.4 % (36.0-66.0); Platelet Count 161 x10^3/uL (150-450)
[2021-11-14 05:23] LABS: ALBUMIN 4.2 g/dL (3.5-5.0); ALKALINE PHOSPHATASE 76 U/L (38-126); AMYLASE 71 U/L (30-110); ANION GAP 8.4 MEQ/L (5-15); BLOOD UREA NITROGEN 23 mg/dL (9-20); CHLORIDE 108 mmol/L (98-107); Calcium 9.2 mg/dL (8.4-10.2); Carbon Dioxide 30 mmol/L (22-30); Creatinine 1 0.82 mg/dL (0.66-1.25); EST GLOMERULAR FILTRATION RATE > 60.0 ML/MIN; Glucose 196 mg/dL (74-106); LIPASE 46 U/L (23-300); SGOT/AST 26 U/L (17-59); SGPT/ALT 28 U/L (0-50); SODIUM 142 mmol/L (137-145); Total Protein 7.2 g/dL (6.3-8.2)
[2021-11-14 06:39] LABS: Appearance CLEAR (CLEAR); Bilirubin NEGATIVE (NEGATIVE); Glucose >=1000 mg/dL (NEGATIVE); Ketones NEGATIVE (NEGATIVE); Specific Gravity 1.015 (1.005-1.025)
[2021-11-14 06:40] LABS: Dipstick done @ ? MAIN LAB; Nitrite NEGATIVE (NEGATIVE); Protein,Urine Dip NEGATIVE (Negative); RBC TRACE NON-HEM Ery/ul (0-5); Urobilinogen 0.2 mg/dL (0-1)
[2021-11-14 06:41] LABS: Urine Cultured Indicated? NO
[2021-11-14] MEDS ORDERED: TORAdol 30 mg Injection IV ONE (07:35)
[2021-11-14] MEDS ORDERED: TORAdol 30 mg Injection ONE (07:39)
--- NOTE | 2021-11-14 09:08 | XRAY ---
Indication: Umbilical pain and nausea. Multiple contiguous axial images obtained through the abdomen and pelvis without contrast. Comparison: August 14, 2020 Lung bases demonstrate stable tiny right costophrenic angle calcified granuloma. Heart not enlarged. Stomach is now mildly distended with food/fluid. Noncontrasted stomach and bowel loops remain nonobstructed again with normal appendix and mild sigmoid diverticulosis. Again 15.5 cm splenomegaly, tiny splenic calcified granulomas, and previous cholecystectomy. No free fluid/air. Remaining liver, pancreas, spleen, adrenal glands, kidneys, ureters, and bladder appear unremarkable for noncontrast exam. Again minimal aortoiliac calcifications without AAA. Osseous structures intact again with mild/moderate degenerative changes throughout the visualized spine. Enlarging 4.1 x 4.2 x 4.7 cm fatty umbilical hernia with now minimal stranding either inflammatory versus fatty incarceration. Impression: 1. Enlarging fatty umbilical hernia with new minimal stranding either inflammatory versus fatty incarceration. 2. Again sigmoid diverticulosis, splenomegaly, arteriosclerotic disease, chronic bony findings, and old granulomatous disease. Comment: Preliminary interpretation made by C. No critical discrepancy.
[2021-11-14 09:42] VITALS: BP 135/64; PULSE 78; O2SAT 97
== END 2021-11-14 09:41 | disposition home or self-care (01) ==
LOC: ED 04:43
DX: K43.6 Other and unspecified ventral hernia with obstruction, without gangrene (principal); R10.33 Periumbilical pain; R11.0 Nausea; E11.9 Type 2 diabetes mellitus without complications; Z72.0 Tobacco use; Z79.01 Long term (current) use of anticoagulants; Z79.84 Long term (current) use of oral hypoglycemic drugs; Z79.899 Other long term (current) drug therapy; Z79.891 Long term (current) use of opiate analgesic
CPT/HCPCS: 36000; 36415; 74176; 80053; 81015; 82150; 83690; 85025; 96360; 96374; 96375; 99284; J1170; J1885; J2405